=== PATIENT | male | born 2005 | race Caucasian/White ===

== ENCOUNTER 2025-04-23 16:35 | Emergency (ER) | payer OTHER ==
[~2025-04-23] VITALS: Ht 162.6 cm; Wt 60.0 kg
[2025-04-23 17:16] LABS: BASOPHILS 0.8 % (0.2-1.2); EOSINOPHILS 0.1 % (0.8-7.0); LYMPHOCYTES 12.5 % (21.8-53.1); MCH 28.6 PG (25.7-32.2); MCHC 34.5 g/dL (32.3-36.5); MCV 82.7 fL (79.0-92.2); MONOCYTES 8.9 % (5.3-12.2); NEUTROPHILS 77.3 % (34.0-67.9); RBC 5.32 M/uL (4.63-6.08)
[2025-04-23 17:30] LABS: BLOOD/HGB, URINE NEGATIVE (Negative); KETONE, URINE SMALL (Negative); LEUK ESTERASE, URINE NEGATIVE (negative); NITRITE, URINE NEGATIVE (negative)
[2025-04-23 17:35] LABS: BACTERIA, URINE NONE SEEN /hpf (negative); CASTS, URINE HYALINE 1+ \\lpf; CRYSTALS, URINE NONE SEEN (0-1+); EPITHELIAL CELLS, URINE NONE SEEN /lpf (0-1+); REFLEX CULTURE, URINE No (No)
[2025-04-23 17:46] LABS: AMPHETAMINES, URINE NEGATIVE (NEGATIVE); BARBITURATES, URINE NEGATIVE (NEGATIVE); BENZODIAZEPINE, URINE NEGATIVE (NEGATIVE); CANNABINOID, URINE POSITIVE (NEGATIVE); COCAINE, URINE NEGATIVE (NEGATIVE); ECSTASY, URINE NEGATIVE (NEGATIVE); FENTANYL, URINE NEGATIVE (NEGATIVE); METHADONE, URINE NEGATIVE (NEGATIVE); OPIATES, URINE NEGATIVE (NEGATIVE); OXYCODONE, URINE NEGATIVE (NEGATIVE); PHENCYCLIDINE, URINE NEGATIVE (NEGATIVE)
[2025-04-23 17:46] LABS: ALCOHOL, MEDICAL <3 mg/dL (<3); ALT (SGPT) 15 U/L (14-59); AST (SGOT) 10 U/L (15-37); GLOMERULAR FILTRATION RATE,EST 100 mL/min (>60); PROTEIN, TOTAL 8.1 g/dL (6.4-8.2); TSH, 3RD GENERATION 0.971 uIU/mL (0.358-3.740); UREA NITROGEN 17 mg/dL (7-18)
[2025-04-23] MEDS ORDERED: ZOLPIDEM TARTRATE 5 MG TAB PO ONE (21:30)
[2025-04-24] MEDS ORDERED: OLANZapine 10 MG TABDIS PO SCH (09:00)
[2025-04-24] MEDS ORDERED: NICOTINE POLACRILEX 4 MG LOZENGE BUCCAL PRN (14:00)
[2025-04-24] MEDS ORDERED: LORazepam 2 MG/ML VIAL IM ONE (16:45)
[2025-04-24] MEDS ORDERED: HALOPERIDOL LACTATE 5 MG/ML VIAL IM ONE (16:45)
[2025-04-24 17:40] LABS: INFLUENZA B NAA NEGATIVE (NEGATIVE); RESPIRATORY SYNCYTIAL VIR NAA NEGATIVE (NEGATIVE)
== END 2025-04-27 05:46 ==
LOC: ED 16:35
PROVIDERS: Emergency Medicine
DX: F29 Unspecified psychosis not due to a substance or known physiological condition (principal)
CPT/HCPCS: 36415; 80053; 80307; 81001; 84443; 85025; 87502; 96372; 99285-25; A9270; G0480; J1200; J1630; J2060; U0002